=== PATIENT | male | born 1990 | race Caucasian/White ===

== ENCOUNTER 2017-02-14 21:30 | Emergency (ER) | payer OTHER ==
[2017-02-14 21:33] VITALS: BP 136/74; PULSE 53; TEMP 97.9; BMI 30.2
[2017-02-14] MEDS ORDERED: AMOX TR/POT CLAV 875MG/125MG TABLETS (FP) PO ONE (21:50)
[2017-02-14] MEDS ORDERED: AMOX TR/POT CLAV 875MG/125MG TABLETS (FP) ONE (21:52)
--- NOTE | 2017-02-14 21:56 | PDOC ---
History of Present Illness - General Chief Complaint: Ingrown toenail Stated Complaint: RT 1ST TOE INGROWN NAIL Time Seen by Provider: 02/14/17 21:33 - History of Present Illness Initial Comments: This otherwise healthy 26-year-old man presents with several day history of swelling and pain in his right great toe. 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 During the last several days, he is noted redness and pain in the great toe. He attempted to cut the nail but he did not have relief in the pain and swelling. He denies fever/chills. He had one previous episode of ingrown toenail that he states he treated himself, cutting the toenail adequately. He has not been seen by curing oven attendant in the past area He denies any wound healing problems, history of cellulitis, resistant organism colonization or infection. Patient had called for appointment with curing oven attendant, Dr. Live who told the patient that he needs a referral from the ER here at [facility] He has no known ALLERGIES Lower Extremity Pain Location: right: 1st toe Past History - Past Medical History Allergies/Adverse Reactions: Allergies Allergy/AdvReac Type Severity Reaction Status Date / Time No Known Allergies Allergy Unverified 02/14/17 21:31 Home Medications: Ambulatory Orders NK [No Known Home Medication] 02/14/17 Other medical history: DENIES - Psycho/Social/Smoking Cessation Hx Anxiety: No Suicidal Ideation: No Smoking History: Never smoked Review of Systems - Review of Systems Able to Perform ROS?: Yes Comments:: 12 point review of systems is negative except for what is noted in the history of present illness *Physical Exam - Vital Signs Last Vital Signs Temp Pulse Resp BP Pulse Ox 97.9 F 53 L 18 136/74 99 02/14/17 21:31 02/14/17 21:31 02/14/17 21:31 02/14/17 21:31 02/14/17 21:31 - Physical Exam Comments: Adult male, alert and oriented 3, in no acute distress EXTREMITIES: Right lower extremitygreat toe: Erythematous, edematous, moderately tender distal phalanx, medial aspect No fluctuance or drainage; small open wound at the medial proximal nail fold ( nonbleeding) Nail edge is not clearly embedded medially or laterally Remainder of the extremity exam is normal NEUROLOGICAL: Cranial nerves II through XII grossly intact. Normal speech. No focal neurological deficits. SKIN: Warm, Dry, normal turgor, no rashes or lesions noted. Using sterile technique, small wound at the proximal portion of the nailbed cleansed with sterile normal saline. Bacitracin ointment and dry sterile dressing applied to the wound. Progress Note - Progress Note Progress Note: This 26-year-old man presents with history of right great toe ingrown toenail and surrounding cellulitis. No obvious intrusion of the nail into the soft tissue is present but the patient definitely has cellulitis around the area. No evidence of proximal extension of cellulitis; no lymphangitic streaking. Patient will be started on Augmentin 875/125 twice a day with first dose given here in the emergency room. Patient referred to Dr. Live for follow-up visit on February 17. Meanwhile, patient should elevate the foot as much as possible and use open toed shoes. He should not work until seen by the curing oven attendant. Right foot should be soaked in warm water 2-3 times a day. He should return to the emergency room if swelling/redness/pain worsens or he develops fever/chills *DC/Admit/Observation/Transfer Diagnosis at time of Disposition: Ingrown nail of great toe of right foot Cellulitis of toe Qualifiers: Laterality: right Qualified Code(s): L03.031 - Cellulitis of right toe - Discharge Dispostion Disposition: HOME Condition at time of disposition: Stable - Referrals Referrals: Kathleen Ragsdale MD [Staff Physician] - Gil Live MD [Staff Physician] - 3 days - Patient Instructions Printed Discharge Instructions: DI for Infected Ingrown Toenail Additional Instructions: Elevate right foot as much as possible Use open toed shoes/sandals Can place gauze on area while wearing work boots Warm soaks to right foot 2-3 times a day until seen by curing oven attendant Augmentin 875/125 twice a day or one-week (take with food) Follow-up with curing oven attendant () on February 17 Return to ER if pain/swelling/redness worsens
== END 2017-02-14 22:02 | disposition home or self-care (01) ==
LOC: FER 21:30
DX: L60.0 Ingrowing nail (principal); L03.031 Cellulitis of right toe
CPT/HCPCS: 99281-25

== ENCOUNTER 2017-02-20 18:18 | Emergency (ER) | payer OTHER ==
[2017-02-20 18:22] VITALS: BP 108/67; PULSE 56; TEMP 97.8
--- NOTE | 2017-02-20 18:27 | PDOC ---
History of Present Illness - General History Source: Patient, Old Records Exam Limitations: No Limitations <Roxanne Mckinney - Last Filed: 02/20/17 18:29> - General History Source: Patient, Old Records Exam Limitations: No Limitations - History of Present Illness Initial Comments: 02/20/17 18:35 The patient is a 26 year old male with no significant past medical history who presents to the ED for a revisit for right big toe pain and swelling which has been occurring for several days. The patient was seen in the ED on Friday in which he was given a topical cream but denies being given prescription for antibiotics. In previous note the patient stated he had an ingrown nail in that toe but was unsuccessful cutting it out. The patient states he had an appointment to see a general production manager today, however they never got his information and were unable to treat him. The next appointment is two weeks from today. He denies any numbness to the digit. The patient denies any recent illness, fever, chills, nausea, vomiting, or diarrhea. <Eli Baker - Last Filed: 02/20/17 18:37> - General Chief Complaint: Pain Stated Complaint: RT 1ST TOE PAIN CONTINUES Time Seen by Provider: 02/20/17 18:26 Past History - Past Medical History Other medical history: DENIES - Psycho/Social/Smoking Cessation Hx Anxiety: No Suicidal Ideation: No Smoking History: Never smoked <Roxanne Mckinney - Last Filed: 02/20/17 18:29> <SamuelEli - Last Filed: 02/20/17 18:37> - Past Medical History Allergies/Adverse Reactions: Allergies Allergy/AdvReac Type Severity Reaction Status Date / Time No Known Allergies Allergy Unverified 02/14/17 21:31 Home Medications: Ambulatory Orders Cephalexin [Keflex] 500 mg PO BID #14 capsule 02/20/17 Ibuprofen 800 mg PO QID #30 tablet 02/20/17 Review of Systems - Review of Systems Able to Perform ROS?: Yes Comments:: 02/20/17 18:35 GENERAL/CONSTITUTIONAL: No fever or chills. No weakness. HEAD, EYES, EARS, NOSE AND THROAT: No change in vision. No ear pain or discharge. No sore throat. CARDIOVASCULAR: No chest pain or shortness of breath. RESPIRATORY: No cough, wheezing, or hemoptysis. GASTROINTESTINAL: No nausea, vomiting, diarrhea or constipation. GENITOURINARY: No dysuria, frequency, or change in urination. MUSCULOSKELETAL: No joint or muscle swelling or pain. No neck or back pain. SKIN: Present: right great toe pain and swelling. No rash NEUROLOGIC: No headache, vertigo, loss of consciousness, or change in strength/ sensation. ENDOCRINE: No increased thirst. No abnormal weight change. HEMATOLOGIC/LYMPHATIC: No anemia, easy bleeding, or history of blood clots. ALLERGIC/IMMUNOLOGIC: No hives or skin allergy. All Other Systems: Reviewed and Negative <Eli Baker - Last Filed: 02/20/17 18:37> *Physical Exam - Vital Signs Last Vital Signs Temp Pulse Resp BP Pulse Ox 97.8 F 56 L 18 108/67 97 02/20/17 18:20 02/20/17 18:20 02/20/17 18:20 02/20/17 18:20 02/20/17 18:20 <Roxanne Mckinney - Last Filed: 02/20/17 18:29> - Vital Signs Last Vital Signs Temp Pulse Resp BP Pulse Ox 97.8 F 56 L 18 108/67 97 02/20/17 18:20 02/20/17 18:20 02/20/17 18:20 02/20/17 18:20 02/20/17 18:20 - Physical Exam Comments: 02/20/17 18:36 GENERAL: Awake, alert, and fully oriented, in no acute distress HEAD: No signs of trauma EYES: PERRLA, EOMI, sclera anicteric, conjunctiva clear ENT: Auricles normal inspection, hearing grossly normal, nares patent, oropharynx clear without exudates. Moist mucosa NECK: Normal ROM, supple, no lymphadenopathy, JVD, or masses LUNGS: Breath sounds equal, clear to auscultation bilaterally. No wheezes, and no crackles HEART: Regular rate and rhythm, normal S1 and S2, no murmurs, rubs or gallops ABDOMEN: Soft, nontender, normoactive bowel sounds. No guarding, no rebound. No masses EXTREMITIES: Erythema around right great toe. The medial aspect of the nail appears to be removed and there is swelling without fluctuance. Full ROM, DP pulses intact. No clubbing or cyanosis. NEUROLOGICAL: Cranial nerves II through XII grossly intact. Normal speech, normal gait SKIN: Warm, Dry, normal turgor, no rashes or lesions noted. <Eli Baker - Last Filed: 02/20/17 18:37> ED Treatment Course - Medications Given in the ED: ED Medications Discontinued Medications Generic Name Dose Route Start Last Admin Trade Name Radha PRN Reason Stop Dose Admin Ibuprofen 800 mg 02/20/17 18:28 02/20/17 18:34 Motrin - PO 02/20/17 18:29 800 mg ONCE ONE Administration <SamuelEli - Last Filed: 02/20/17 18:37> Medical Decision Making - Medical Decision Making 02/20/17 18:31 26-year-old male presents to the emergency department with complaint of right great toe pain for the past week; the patient was seen in the ED 5 days ago for the same complaints but apparently was not discharge on antibiotics. The patient also presented to podiatry today but there was a mix up with his appointment therefore he was not seen by a general production manager. The toe looks mildly cellulitic but there is no evidence of abscess or purulent drainage from the toenail. Plan: 1. Discharge on Keflex and ibuprofen 2. Patient encouraged to keep his scheduled appointment with podiatry for 2 weeks from now 3. Return to the ED if symptoms persist, worsen, or new symptoms arise. <Roxanne Mckinney - Last Filed: 02/20/17 18:29> *DC/Admit/Observation/Transfer - Discharge Dispostion Admit: No <Roxanne Mckinney - Last Filed: 02/20/17 18:29> - Attestations Scribe Attestion: 02/20/17 18:37 Documentation prepared by Eli Baker, acting as mobile paramedical examiner for Roxanne Mckinney MD. <Eli Baker - Last Filed: 02/20/17 18:37> Diagnosis at time of Disposition: Ingrown nail of great toe of right foot, Cellulitis of toe - Discharge Dispostion Condition at time of disposition: Stable - Prescriptions Prescriptions: Ibuprofen 800 mg PO QID #30 tablet Cephalexin [Keflex] 500 mg PO BID #14 capsule - Patient Instructions Printed Discharge Instructions: DI for Ingrown Toenail Additional Instructions: Your toe appears to be infected therefore you're being discharged on an antibiotic Keflex 500 mg. Take 1 tablet twice daily for the next week. Please keep your podiatry appointment as scheduled. He may take ibuprofen 800 mg every 6-8 hours as needed for pain. Return to the emergency department if the toe appears more red, more swollen, fevers, chills or any other symptoms.
[2017-02-20] MEDS ORDERED: IBUPROFEN 400 MG TABLET (FP) PO ONE ×2 (18:28→18:33)
== END 2017-02-20 18:54 | disposition home or self-care (01) ==
LOC: FER 18:18
DX: L03.031 Cellulitis of right toe (principal); L60.0 Ingrowing nail
CPT/HCPCS: 99281-25